=== PATIENT | female | born 1960 | race Caucasian/White ===

== ENCOUNTER 2016-09-09 14:39 | Inpatient (IN) | payer BC ==
[~2016-09-09] VITALS: Ht 154.9 cm; Wt 68.6 kg
[2016-09-09] VITALS (13 sets, daily range): BP systolic 112–162; RESP 15–23; TEMP 97.4–99; Ht 154.9 cm; Wt 68.6 kg
[~2016-09-09 14:39] MED LIST: FENTANYL 100 MCG/2 ML AMP IV ONE; LIDOCAINE 2% SYR 5 ML IV ONE; MIDAZOLAM 2 MG/2 ML INJ ONE; PROPOFOL 20 ML VIAL IV ONE; ROCURONIUM 50 MG VIAL IV ONE; SUCCINYLCHOLINE 20 MG/ML VL IV ONE; SUGAMMADEX 200 MG/2 ML VIAL IV ONE
[2016-09-09] MEDS ORDERED: OPTIRAY 350 100 ML VIAL HMH IV ONE (14:40)
[2016-09-09] MEDS ORDERED: TEMAZEPAM 15 MG CAP PO PRN (18:45)
[2016-09-09] MEDS ORDERED: ALU/MAG/SIM 30 ML UDC PO PRN (18:45)
[2016-09-09] MEDS ORDERED: MORPHINE 2 MG/ML SYR IV PRN ×3 (18:45→22:00)
[2016-09-09] MEDS ORDERED: MORPHINE 4 MG/ML SYR IV PRN ×3 (18:45→22:00)
[2016-09-09] MEDS ORDERED: ONDANSETRON 4 MG VIAL IV PRN ×3 (18:45→22:00)
[2016-09-09] MEDS ORDERED: PROMETHAZINE 25 MG/ML VIAL IV PRN ×2 (18:45→22:00)
[2016-09-09] MEDS ORDERED: LACT RINGERS 1,000 ML IV SCH ×3 (18:45→22:00)
[2016-09-09] MEDS ORDERED: ACETAMINOPHEN 325 MG TAB PO PRN (18:45)
[2016-09-09] MEDS ORDERED: MAG HYDROX 30 ML UDC PO PRN (18:45)
[2016-09-09] MEDS: FAMOTIDINE 20 MG INJ IV SCH (19:58)
[2016-09-09] MEDS: PIPERACIL/TAZO 3.375GM/50ML 50 ML IV SCH ×2 (19:58→23:33)
[2016-09-09] MEDS ORDERED: PIPERACIL/TAZO 3.375GM/50ML 50 ML IV ONE (20:15)
[2016-09-09] MEDS ORDERED: LIDOCAINE 1% BUFFERED 1 ML SYR INTRADERM PRN (20:55)
[2016-09-09] MEDS ORDERED: MIDAZOLAM 2 MG/2 ML INJ IV ONE (20:55)
[2016-09-09] MEDS ORDERED: GLYCOPYRROLATE 0.2 MG/ML VIAL IV ONE (20:55)
[2016-09-09] MEDS ORDERED: MEPERIDINE 25 MG/ML IV PRN (21:10)
[2016-09-09] MEDS ORDERED: OXYCODONE 5 MG TAB PO PRN (21:10)
[2016-09-09] MEDS ORDERED: PIPERACIL/TAZO 3.375GM/50ML 50 ML IV SCH (22:00)
[2016-09-09] MEDS: [UNRECOGNIZED DRUG - REMARK] XX SCH (22:07)
[2016-09-09] MEDS: DILAUDID 1 MG/ML AMP IV PRN ×2 (22:21→22:30)
[2016-09-10] VITALS (7 sets, daily range): BP systolic 98–154; RESP 14–16; TEMP 97.8–98.6
[2016-09-10] MEDS: PIPERACIL/TAZO 3.375GM/50ML 50 ML IV SCH ×2 (06:13→11:22)
[2016-09-10] MEDS ORDERED: LEVOTHYROXINE 0.05 MG TAB PO SCH (07:00)
[2016-09-10] MEDS: FAMOTIDINE 20 MG INJ IV SCH (07:36)
[2016-09-10] MEDS: [UNRECOGNIZED DRUG - REMARK] XX SCH (07:38)
[2016-09-10] MEDS ORDERED: LAMOTRIGINE 300 MG PO SCH (09:00)
[2016-09-10] MEDS ORDERED: BUSPIRONE HCL 15 MG TAB PO SCH (09:00)
[2016-09-10] MEDS ORDERED: FLINTSTONES COMPLETE PO SCH (09:00)
[2016-09-10] MEDS ORDERED: ZOLPIDEM 5 MG TAB PO SCH (21:00)
[2016-09-10] MEDS ORDERED: Losartan 50 MG TAB PO SCH (21:00)
== END 2016-09-10 17:20 | disposition home or self-care (01) | DRG 343 ==
LOC: ENRESERVDT → ENRESERVTM → CT 14:39 → ENPENDDIS 18:42 → 5THE 18:42
PROVIDERS: ADMIT Internal Medicine; ATTEND Internal Medicine
PROC: 0DTJ4ZZ Resection of Appendix, Percutaneous Endoscopic Approach (ICD-10-PCS; principal; 2016-09-10)
DX: K35.80 Unspecified acute appendicitis (principal); F31.9 Bipolar disorder, unspecified; M16.12 Unilateral primary osteoarthritis, left hip; I25.10 Atherosclerotic heart disease of native coronary artery without angina pectoris
CPT/HCPCS: 36415; 74177; 80053; 81003; 85025; 87088; 88304; 94799